=== PATIENT | female | born 1965 | race Two or more races ===

== ENCOUNTER 2019-12-24 06:00 | Inpatient (IN) | payer OTHER ==
[2019-12-24] VITALS (15 sets, daily range): BP systolic 130–160; BP diastolic 81–101
[~2019-12-24] VITALS: Ht 162.6 cm; Wt 105.2 kg
[2019-12-24 06:33] LABS: APPEARANCE,URINE CLEAR; BILIRUBIN, URINE NEGATIVE (NEGATIVE); COLOR,URINE PALE YELLOW; GLUCOSE, URINE (UA) NEGATIVE (NEGATIVE); KETONES,URINE NEGATIVE (NEGATIVE); LEUKOCYTE ESTERASE ,URINE NEGATIVE (NEGATIVE); NITRITE,URINE NEGATIVE (NEGATIVE); PH,URINE 6.5 (4.5-8.0); PROTEIN,URINE 1+ (NEGATIVE); UROBILINOGEN,URINE NORMAL MG/DL (0.0-1.0)
[2019-12-24] MEDS ORDERED: Vancomycin 1gm vial IVPB ONE (06:41)
[2019-12-24] MEDS ORDERED: Bacitracin 50000 Units Vial ONE (06:42)
[2019-12-24] MEDS ORDERED: Thrombin 5000 units TOPIC ONE (06:42)
[2019-12-24] MEDS ORDERED: Gelfoam Size TOPIC ONE (06:42)
--- NOTE | 2019-12-24 06:42 | Anethesia Preoperative Eval ---
Anesthesia Pre-op PMH/ROS General Date of Evaluation: Dec 24, 2019 Time of Evaluation: 07:01 Anesthesiologist: Abbie ASA Score: ASA 3 Mallampati Score Class I : Soft palate, uvula, fauces, pillars visible Class II: Soft palate, uvula, fauces visible Class III: Soft palate, base of uvula visible Class IV: Only hard plate visible Mallampati Classification: Class II Surgeon: MELISSA Diagnosis: Neck Pain Surgical Procedure: ACDF C6-7 Anesthesia History: none Family History: no anesthesia problems Allergies: Coded Allergies: No Known Allergies (Unverified , 12/20/19) Medications: see eMAR Patient NPO?: Yes Past Medical History Cardiovascular: Reports: HTN Neurologic/Psychiatric: Reports: depression/anxiety Other: obesity - MOrbid BMI 41 Anesthesia Pre-op Phys. Exam Physician Exam Last Vital Signs Date Time Temp Pulse Resp B/P (MAP) Pulse Ox O2 Delivery O2 Flow Rate FiO2 12/24/19 06:36 97.0 78 18 160/81 (107) 99 Constitutional: NAD Neurologic: CN 2-12 intact Cardiovascular: RRR Respiratory: CTA Gastrointestinal: S/NT/ND Airway Exam Mallampati Score: Class II MO: limited ROM: limited Teeth: missing, intact Anesthesia Pre-op A/P Risk Assessment & Plan Assessment: ASA 3 Plan: GA, SED, GlideScope Status Change Before Surgery: No Pre-Antibiotics Dru Grams Ancef IV Given Within 1 Hr of Incision: Yes Time Given: 07:31 Jaquan Leiva MD Dec 24, 2019 06:42
[2019-12-24] MEDS ORDERED: HYDROcodone/Acetamin 5/325 tab ORAL PRN ×2 (06:45→07:30)
[2019-12-24] MEDS ORDERED: Meperidine 25mg/1ml Inj (FOR RIGORS ONLY) IV PRN (06:45)
[2019-12-24] MEDS ORDERED: Metoclopramide 10mg/2ml Inj IVP PRN ×2 (06:45→07:30)
[2019-12-24] MEDS ORDERED: DiphenhydrAMINE 50mg/ml Inj IVP PRN (06:45)
[2019-12-24] MEDS ORDERED: Hydromorphone 0.5mg/0.5ml inj IVP PRN (06:45)
[2019-12-24] MEDS ORDERED: HYDROcodone/Acetamin 7.5/325 tab ORAL PRN ×2 (06:45→07:30)
[2019-12-24] MEDS ORDERED: LORazepam Inj 2mg/ml 1ml IV PRN (06:45)
[2019-12-24] MEDS ORDERED: oxyCODONE HCL/Acetaminophen 5/325mg ORAL PRN (06:45)
[2019-12-24] MEDS ORDERED: fentaNYL 100 mcg/2 mL IV PRN (06:45)
[2019-12-24] MEDS ORDERED: Atropine Sulfate 0.4mg/ml inj IVP PRN (06:45)
[2019-12-24] MEDS ORDERED: LR 1000ml 1,000 ML IVLG SCH (06:45)
[2019-12-24] MEDS ORDERED: Ketorolac 30mg Inj IV PRN ×2 (06:45)
[2019-12-24] MEDS ORDERED: Labetalol 5mg/ml 20ml vial IV PRN (06:45)
[2019-12-24] MEDS ORDERED: Acetaminophen (Non formulary) 100 ML IV ONE (06:45)
[2019-12-24] MEDS ORDERED: Midazolam 2mg/2ml Inj IVP PRN (06:45)
[2019-12-24] MEDS ORDERED: Rocuronium Bromide 50mg/5ml Inj IV ONE (06:46)
--- NOTE | 2019-12-24 06:54 | Immediate Post-Op Evaluation ---
Immediate Post-Op Evalulation Immediate Post-Op Evalulation Procedure: ACDF C6-7 Date of Evaluation: Dec 24, 2019 Time of Evaluation: 09:29 IV Fluids: 1000 LR Blood Products: 0 Estimated Blood Loss: 30 Urinary Output: 300 Blood Pressure Systolic: 145 Blood Pressure Diastolic: 100 Pulse Rate: 75 Respiratory Rate: 16 O2 Sat by Pulse Oximetry: 82 Temperature (Fahrenheit): 97 Pain Score (1-10): 2 Nausea: No Vomiting: No Complications 0 Patient Status: awake, reacts, patent, extubated, none Hydration Status: adequate Dru Gram Ancef IV Given Within 1 Hr of Incision: Yes Time Given: 07:31 Jaquan Leiva MD Dec 24, 2019 06:54
[2019-12-24] MEDS ORDERED: Lidocaine 1% MPF 10mg/ml 5ml ONE (06:55)
[2019-12-24] MEDS ORDERED: ceFAZolin sod 2 GM in NS 55 ML IVPB ONE (07:00)
[2019-12-24] MEDS ORDERED: propofoL 1,000mg/100ml IV ONE (07:00)
--- NOTE | 2019-12-24 07:16 | Pre-Procedure Note/Attestation ---
Pre-Procedure Note/Attestation Complete Prior to Procedure Planned Procedure: not applicable Procedure Narrative: Cervical 67 anterior cervical discectomy and fusion Indications for Procedure Pre-Operative Diagnosis: C67 herniation Attestation I attest that I discussed the nature of the procedure; its benefits; risks and complications; and alternatives (and the risks and benefits of such alternatives), prior to the procedure, with the patient (or the patient's legal traffic workforce representative). I attest that, if there was a reasonable possibility of needing a blood transfusion, the patient (or the patient's legal traffic workforce representative) was given the [facility] standardized written summary, pursuant to the [place] Ruy Blood Safety Act ([place] Health and Safety Code # 1645, as amended). I attest that I re-evaluated the patient just prior to the surgery and that there has been no change in the patient's H&P, except as documented below: Maxim Vargsa MD Dec 24, 2019 07:16
--- NOTE | 2019-12-24 07:17 | Brief Operative Note ---
Immediate Post Operative Note Operative Note Chief Complaint: neck pain and radiculopathy Pre-op Diagnosis: C67 herniation Procedure: Cervical 67 anterior cervical discectomy and fusion Post-op Diagnosis: same as pre-op Findings: consistent w/pre-op dx studies Surgeon: Sam Director [employer]: Eddie Anesthesiologist: Abbie Anesthesia: general Specimen: none Complications: none Condition: stable Fluids: IVF Estimated Blood Loss: minimal Drains: none Implant(s) used?: Yes - nuvasive interlock c sz6 osteocell 1cc Maxim Vargas MD Dec 24, 2019 07:17
[2019-12-24] MEDS ORDERED: Lidocaine 1% Plain 30 ml INJ ONE (07:19)
[2019-12-24] MEDS ORDERED: HYDROmorphone 1mg/ml Carpuject IVP PRN (07:30)
[2019-12-24] MEDS ORDERED: Milk of Magnesia 30ml Ud ORAL PRN (07:30)
[2019-12-24] MEDS ORDERED: Morphine Sulfate 4mg/ml Inj (IV USE ONLY) IV PRN ×2 (07:30→11:15)
[2019-12-24] MEDS ORDERED: Chloraseptic Spray 20mL Bottle ORAL PRN (07:30)
[2019-12-24] MEDS ORDERED: Naloxone 0.4mg/ml Inj IVP PRN (07:30)
[2019-12-24] MEDS ORDERED: Morphine Sulfate 2mg/ml Inj(IV/IM USE ONLY) IV PRN (07:30)
[2019-12-24] MEDS ORDERED: Glycopyrrolate 0.2mg/ml 1ml Vial ONE (08:36)
[2019-12-24] MEDS ORDERED: Flumazenil 0.5mg/5ml Inj IV ONE (08:39)
[2019-12-24] MEDS: NS w/KCl 20mEq 1000ml 1,000 ML IV SCH ×2 (12:06→22:11)
--- NOTE | 2019-12-24 12:47 | Diagnostic Imaging Report ---
INDICATION: Pain, intraoperative TECHNIQUE: Intraoperative imaging Fluoroscopy time: 14.1 seconds Total dose: 0.78975 mGym2 Total number of images: 4 COMPARISON: None FINDINGS: 6 intraoperative images document surgical tool projected at level C6-7 disc. Subsequent images document anterior fusion at C6-7. IMPRESSION: Intraoperative imaging, as described
[2019-12-24] MEDS: ceFAZolin sod 1 GM in D5W 55 ML IV SCH ×2 (15:10→22:47)
[2019-12-24] MEDS: HYDROcodone/Acetamin 7.5/325 tab ORAL PRN ×2 (16:25→20:44)
[2019-12-24] MEDS: Docusate 100mg cap ORAL SCH (17:51)
[2019-12-25] VITALS: BP 125/81
[2019-12-25 04:00] VITALS: BP 120/78
[2019-12-25] MEDS: HYDROcodone/Acetamin 7.5/325 tab ORAL PRN ×2 (05:39→12:00)
[2019-12-25 05:46] VITALS: BP 120/78
[2019-12-25] MEDS: ceFAZolin sod 1 GM in D5W 55 ML IV SCH (06:30)
[2019-12-25 08:00] VITALS: BP 127/75
[2019-12-25] MEDS: Docusate 100mg cap ORAL SCH (08:14)
[2019-12-25] MEDS: NS w/KCl 20mEq 1000ml 1,000 ML IV SCH (08:15)
--- NOTE | 2019-12-25 09:14 | 48 Hour Post Anesthesia Eval ---
Post Anesthesia Evaluation Procedure: ACDF C6-7 Date of Evaluation: Dec 25, 2019 Time of Evaluation: 09:13 Blood Pressure Systolic: 132 0: 74 Pulse Rate: 68 Respiratory Rate: 22 Temperature (Fahrenheit): 97.8 O2 Sat by Pulse Oximetry: 96 Airway: patent Nausea: No Vomiting: No Pain Intensity: 3 Hydration Status: adequate Cardiopulmonary Status: stable Mental Status/LOC: patient returned to baseline Follow-up Care/Observations: n/a Post-Anesthesia Complications: none Follow-up care needed: N/A Ulises Martinez MD Dec 25, 2019 09:14
--- NOTE | 2019-12-25 11:40 | Diagnostic Imaging Report ---
INDICATION: Pain, intraoperative TECHNIQUE: Intraoperative imaging Fluoroscopy time: 14.1 seconds Total dose: 0.65893 mGym2 Total number of images: 4 COMPARISON: None FINDINGS: 6 intraoperative images document surgical tool projected at level C6-7 disc. Subsequent images document anterior fusion at C6-7. IMPRESSION: Intraoperative imaging, as described
[2019-12-25 12:00] VITALS: BP 129/81
[2019-12-25] MEDS ORDERED: NORCO 10-325 T1 EACH ORAL (12:48)
--- NOTE | 2019-12-27 14:32 | Discharge Summary ---
Discharge Summary Hospital Course Date of Admission Dec 24, 2019 at 06:00 Date of Discharge Dec 25, 2019 at 14:20 Admitting Diagnosis C6-7 herniation Reason for Hospitalization: elective surgery HPI Akua Joya is a 54 year old female who was admitted on Dec 24, 2019 at 06:00 for Herniated Nucleus Pulposus, Pain, Radiculopathy Patient was admitted for elective surgery. Procedures s/p 12/[address] Vargas Cervical 67 anterior cervical discectomy and fusion Hospital Course status post surgery course of recovery uneventful initially IV fluids s/p perioperative antibiotic and steroid neurovascular status closely monitored, remained stable incision clean , dry and intact ,dressed pain management was addressed; pain controlled remained hemodynamically stable ambulated with PT fall precautions maintained; safe for ambulation DVT prophylaxis provided use of incentive spirometry was encouraged while in the bed tolerated soft diet , IV fluids discontinued GI prophylaxis provided antiemetics were on board as needed voided freely bowel regimen instituted patient was stable for discharge discharge instructions provided follow up with surgeon in the office as advised FINAL DIAGNOSES C67 herniation s/p Cervical C6-7 anterior cervical discectomy and fusion Discharge Medications Changed Medications: Hydrocodone Bit/Acetaminophen 10-325* ([place] 10-325*) 1 Each Tablet 1 TAB ORAL Q8HR PRN for For Pain, #75 TAB 0 Refills (Changed from: Q6H; 12) PRN PAIN Discharge Condition Upon Discharge: stable Discharge Vital Signs Last Vital Signs Date Time Temp Pulse Resp B/P (MAP) Pulse Ox O2 Delivery O2 Flow Rate FiO2 12/25/19 12:00 97.5 72 20 129/81 (97) 96 12/25/19 09:00 Room Air 12/24/19 21:00 3.0 Discharge Disposition Patient was discharged to Home () Discharge Instructions Discharge Instructions Special Instructions I have been assigned to complete a D/C Summary on this account. I was not involved in the patient management Cinthya Elizondo CUSTOMER SERVICE OPERATOR Dec 27, 2019 14:32
--- NOTE | 2019-12-27 21:30 | Operative Note - Dictated ---
DATE OF OPERATION: 12/24/2019 SURGEON: Maxim Vargas MD, orthopedic spine surgeon. PREOPERATIVE DIAGNOSES: 1. Intractable neck pain. 2. Radiculopathy. 3. Herniation, C6-C7. 4. Neural foraminal stenosis C6-C7. 5. Stenosis. POSTOPERATIVE DIAGNOSES: 1. Intractable neck pain. 2. Radiculopathy. 3. Herniation, C6-C7. 4. Neural foraminal stenosis C6-C7. 5. Stenosis. PROCEDURE PERFORMED: 1. Anterior cervical discectomy and fusion of C6-C7 using Nuvasive Interlock Cage, size 6, a total of three 13 mm screws, with the insertion of 1 mL of allograft Osteocel bone. 2. Use of intraoperative microscope. 3. Motor evoked potential monitoring. 4. Somatosensory evoked potential monitoring. 5. Supervision and interpretation of fluoroscopy. COMPLICATIONS: None. ANESTHESIA: General. ESTIMATED BLOOD LOSS: Less than 100 mL. INDICATIONS FOR SURGERY: This patient is a 54-year-old female who has a history of intractable neck pain, radiculopathy, herniation, C6-C7, neural foraminal stenosis C6-C7, stenosis. We tried a course of conservative management but despite this course there was still a significant component of persistent, recalcitrant neck pain and arm pain. The MRI demonstrated significant neural foraminal compromise secondary to disc herniations at C6-C7. We had a long discussion with Akua regarding the risks and benefits of surgery. Our discussion included but was not limited to nonoperative management, chiropractic management, another epidural steroid injection as well definitive management in the form of surgery. We recommended an anterior cervical discectomy and fusion of C6-C7 using Nuvasive Interlock Cage, size 6, a total of three 13 mm screws, with the insertion of 1 mL of allograft Osteocel bone as final definitive management. We reviewed the risks and benefits of surgery with the patient. Our discussion included a comprehensive review of the clinical issues and the nature of the clinical decision. We reviewed the alternatives, including doing nothing. The patient elected to proceed accordingly with anterior cervical discectomy and fusion of C6-C7 using Nuvasive Interlock Cage, size 6, a total of three 13 mm screws, with the insertion of 1 mL of allograft Osteocel bone. We had a long discussion regarding the risks, alternatives and benefits of surgery. Our description of the risks included a discussion in person as well as a signed consent which detailed all pertinent risks from the procedure itself. Briefly, our discussion included but was not limited to infection, bleeding, pseudarthrosis, spinal cord injury, neurovascular injury, dural tear, CSF leak, neuropathy, paralysis, permanent weakness/drop foot/drop arm, paresthesias, blindness, palsy and weakness. The patient understood there may be a need for a revision surgery or additional procedures. Approach-related complications including dysphonia, dysphagia, blindness, permanent vocal cord and neural injury, hematoma, swallowing and breathing difficulty. Medical complications were reviewed including liver, kidney, shock, cardiopulmonary failure, anesthesia complications including , swelling, damage to the musculature, larynx/voice injury or loss, esophagus/throat, trachea, blood vessels and muscles/muscular sprain and lungs/pneumothorax during this surgical procedure; injury to deeper structures may be temporary or permanent. After this review of risks, the patient understood these and elected to proceed. A written and verbal consent was given. We discussed the pros and cons of all the alternatives. We discussed the uncertainties associated with the decision. Afterwards I assessed the patient's understanding and explored their preferences. All questions were answered and no guarantees were given. Medical clearance was obtained prior to surgery. INTRAOPERATIVE FINDINGS: There was a large tear noted on the right side of the posterior longitudinal ligament. This tear was approximately 10 degrees cephalad to caudad. This was probed with a micro-sect 1-B curette, which led to discovery of a large herniated fragment having severe encroachment on the neural foramina of the right side. This was resected with Kerrison-1 and Kerrison-2 rongeurs without any difficulty until complete foraminotomy was performed. It should be noted that the disc itself was soft and well dehydrated. Did not appear desiccated, calcified, or having type of bone on bone appearance, which can be expected in degenerative conditions leading me to believe this is more traumatic in nature due to the of the tear of the posterior longitudinal ligament. DESCRIPTION OF PROCEDURE: Under the benefit of general endotracheal anesthesia and with the assistance of the entire operative team, the patient was moved from the rney onto the operative table in the supine position. The head was secured and carefully positioned appropriately. Bilateral arms were secured with Gelpads and foam and all bony prominences were padded. For the bilateral lower extremities SCD and LOR hose were placed for DVT prophylaxis. A surgical timeout was called which corroborated our planned procedure of Anterior cervical discectomy and fusion of C6-C7 using Nuvasive Interlock Cage, size 6, a total of three 13 mm screws, with the insertion of 1 mL of allograft Osteocel bone. Preoperative antibiotics were administered within 30 minutes of the incision for antibiotic prophylaxis. Using lateral fluoroscopic radiography, the operative levels were delineated. Next the wound was prepped and draped with Chlorhexidine and sterile drapes. An incision was based on lateral fluoroscopy and we centered our incision at the C6-C7 interspace and next using a standard Hoffman-Wang anterior based approach the incision was taken down through the skin and subcutaneous tissues until the vertebral bodies and their corresponding disc spaces were visualized. A needle was placed into the interspace to confirm placement of the operative interspace and we performed the remainder of procedure under microscopic visualization. Next, using a bipolar and Bovie cautery to ensure meticulous hemostasis, the longus colli was mobilized bilaterally and retractors were placed deep to the longus colli bilaterally to address retraction. Next we turned our attention to the radical anterior discectomy. This was initially performed at C6-C7. First by using a 15 blade scalpel followed by narrow pituitaries and a micro-sect 5-B curette was used to denude the endplate of all cartilaginous tissue. Next using a [employer] Braulio AM8 drillbit the partial vertebrectomy was performed in a [id number] and layer by layer fashion, and ultimately the posterior uncinate joints bilaterally and posterior osteophytic lips and margins causing central and lateral impingement were carefully denuded until visualization of the posterior longitudinal ligament was possible. An endplate preparation was performed in the exact same fashion using an intervertebral accounts clerk, sequential distraction was obtained throughout the disc space. We saw a tear/rent in the PLL and this was carefully mobilized and dissected using a micro-set 1-B curet until we visualized a broad-based disc herniation with compression of the spinal cord as well as neural foramina which was right more than left sided. This neural foraminal compression was carefully resected using a Kerrison-1 and Kerrison-2 rongeurs until complete decompression of the spinal cord was visualized and complete decompression of the neural foramina and nerve root therein as well as the axilla and lateral margin of the nerve root was visualized and subsequently completely decompressed. The family was notified at one hour intervals throughout the procedure to provide for consistent updates. We next turned our attention towards trialing our implant within the disc space. We initially tried size 5 and afterwards size 6 trial from the (D) (insert the name of the implant as dictated in procedure 1..usually it's the Nuvasive system) at each level, which appeared to be appropriate under AP and lateral fluoroscopy as well as in terms of its height, depth, width and lack of toggle. The PEEK polyetheretherketone interbody cages were then both packed with allograft bone from Osteocel and local autograft bone matrix. Next these were then carefully advanced and secured into their intervertebral spaces under direct visualization and with supervision of AP and lateral fluoroscopic views. We next turned our attention towards plating. Plating was performed with RegainGo interlock-C plating system. A total of three screws, size 13 mm in length were inserted and confirmed under AP and lateral fluoroscopy and confirmed to be in excellent position. After a finger sweep we confirmed removal of all sponges. The retractor was removed and we next turned our attention to meticulous hemostasis with FloSeal and bipolar cautery. After the sponge and needle count was again found to be correct with our second count, we next turned our attention to closure. The wound was again copiously irrigated with antibiotic impregnated saline. Closure consisted of 4-0 clear nylon for the platysma, and 6-0 clear nylon for the superficial skin. Final skin closure and dressings consisted of Dermabond. Prior to final closure, a final radiograph was obtained which demonstrated the hardware is intact with excellent position throughout. The patient tolerated the procedure well. The patient was carefully extubated after the conclusion of surgery. We discussed the findings of the surgery with the family upon completion of the case. At this point the patient was transferred to the spine floor for further observation. Maxim Vargas M.D. DR: PRESTON JOB#: [id number] CC:
== END 2019-12-25 14:20 | disposition home or self-care (01) | DRG 473 ==
LOC: SDSOVERFLO 06:00 → 3E 11:00
PROC: 0RG10A0 Fusion of Cervical Vertebral Joint with Interbody Fusion Device, Anterior Approach, Anterior Column, Open Approach (ICD-10-PCS; principal; 2019-12-24 07:00)
PROC: 0RB30ZZ Excision of Cervical Vertebral Disc, Open Approach (ICD-10-PCS; principal; 2019-12-24 07:00)
DX: M50.123 Cervical disc disorder at C6-C7 level with radiculopathy (principal); Z90.49 Acquired absence of other specified parts of digestive tract; M48.02 Spinal stenosis, cervical region; T14.90XS Injury, unspecified, sequela; V89.2XXS Person injured in unspecified motor-vehicle accident, traffic, sequela
CPT/HCPCS: 36415; 72040; 76000; 81001; 86850; 86900; 86901; 87081; 94003; 94150; J2405; U0002